=== PATIENT | female | born 1995 | race Caucasian/White ===

== ENCOUNTER 2017-12-09 20:53 | Emergency (ER) | payer OTHER ==
[~2017-12-09] VITALS: Ht 152.4 cm; Wt 56.7 kg
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
[2017-12-09 22:21] VITALS: BP 113/79
[2017-12-09] MEDS ORDERED: VICODIN 5-3001 EACH PO (22:21)
[2017-12-09] MEDS ORDERED: CYCLOBENZAPRINE10 M1 PO (22:21)
== END 2017-12-09 22:28 ==
LOC: ERH 20:53
DX: S16.1XXA Strain of muscle, fascia and tendon at neck level, initial encounter (principal); V89.2XXA Person injured in unspecified motor-vehicle accident, traffic, initial encounter; Y92.410 Unspecified street and highway as the place of occurrence of the external cause
CPT/HCPCS: 72050